=== PATIENT | female | born 1990 | race Caucasian/White ===

== ENCOUNTER 2017-06-05 20:09 | Emergency (ER) | payer MEDICAID, SELFPAY ==
[2017-06-05 20:43] VITALS: RESP 20
[2017-06-05] MEDS ORDERED: Sodium Chloride 0.9% 1,000 ML IV ONE (20:51)
--- NOTE | 2017-06-05 20:51 | C.PDOC ---
History Of Present Illness 26 year old female presents to the ED c/o generalized weakness, back pain, nausea and vomiting. Patient reports she is 3 weeks , she is G 3 P 2. Patient denies fever, chills, abdominal pain, diarrhea, vaginal bleeding, vaginal discharge. Time Seen by Provider: 06/05/17 20:50 Chief Complaint (Nursing): Female Genitourinary History Per: Patient History/Exam Limitations: no limitations Onset/Duration Of Symptoms: Days Quality Of Discomfort: "Pain" Associated Symptoms: Nausea, Vomiting Recent travel outside of the [place]: No Abnormal Vaginal Bleeding: No : 3 Para: 2 Past Medical History Reviewed: Historical Data, Nursing Documentation, Vital Signs Vital Signs: Last Vital Signs Temp 98.3 F 06/05/17 20:38 Pulse 103 H 06/05/17 20:38 Resp 20 06/05/17 20:38 BP 97/65 L 06/05/17 20:38 Pulse Ox 100 06/06/17 00:58 - Medical History PMH: No Chronic Diseases Surgical History: No Surg Hx Family History: States: Unknown Family Hx - Social History Hx Alcohol Use: No Hx Substance Use: No Review Of Systems Constitutional: Positive for: Malaise. Negative for: Fever, Chills Cardiovascular: Negative for: Chest Pain, Palpitations Respiratory: Negative for: Cough, Shortness of Breath Gastrointestinal: Positive for: Nausea, Vomiting. Negative for: Abdominal Pain Musculoskeletal: Positive for: Back Pain Skin: Negative for: Rash Neurological: Negative for: Weakness, Numbness Physical Exam - Physical Exam Appears: Non-toxic, No Acute Distress Skin: Warm, Dry Head: Normacephalic Nose: No Discharge, No Deformity Oral Mucosa: Moist Neck: Normal ROM, Supple Chest: Symmetrical Cardiovascular: Rhythm Regular, No Murmur Respiratory: No Decreased Breath Sounds, No Rales, No Rhonchi, No Wheezing Gastrointestinal/Abdominal: Soft, No Tenderness, No Guarding, No Rebound Extremity: No Tenderness, No Swelling Neurological/Psych: Oriented x3 Gait: Steady ED Course And Treatment - Laboratory Results Result Diagrams: 06/05/17 21:33 06/05/17 21:33 O2 Sat by Pulse Oximetry: 100 (On RA) Pulse Ox Interpretation: Normal - CT Scan/US US Other Rad Studies (CT/US): Read By Radiologist, Radiology Report Reviewed CT/US Interpretation: EXAM: US First Trimester, Transabdominal. CLINICAL HISTORY: 26 years old, female; Pain; complicated by abdominal or pelvic pain; Lower; First. trimester; Gestational age or lmp: ; ; Additional info: Abd pain, back pain, 3. weeks . TECHNIQUE: Real-time transabdominal obstetrical ultrasound of the maternal pelvis and a first trimester. with image documentation. COMPARISON: No relevant prior studies available. FINDINGS: Gestation: Single live intrauterine gestation. heart rate of 137 beats per minute. [place]-rump. length of 0.7 cm, correlating with gestational age of 6 weeks 4 days. Uterus/ cervix: No subchorionic hemorrhage. No cervical dilatation or effacement. Ovaries: RIGHT ovary: Normal. LEFT ovary: 2.0 x 2.1 x 1.9 cm anechoic lesion. No adnexal. masses. Free fluid: No significant free fluid. IMPRESSION: 1. Single live intrauterine gestation. 2. LEFT ovarian cyst. Progress Note: Plan: -Labs. -IV Fluids. -UA Reevaluation Time: 01:20 Reassessment Condition: Improved Disposition Counseled Patient/Family Regarding: Studies Performed, Diagnosis, Need For Followup, Rx Given - Disposition Referrals: [facility] [Outside] [facility] [Outside] Disposition: HOME/ ROUTINE Disposition Time: 20:51 Condition: FAIR Prescriptions: Metoclopramide [Reglan] 1 tab PO TID PRN #15 tab PRN Reason: Nausea/Vomiting Instructions: Abdominal Pain in (ED) Forms: [facility] ([place] Citizen) - Clinical Impression Clinical Impression: Abdominal pain during - Scribe Statement The provider has reviewed the documentation as recorded by the Scribe Сергей Delgado All medical record entries made by the Scribe were at my direction and personally dictated by me. I have reviewed the chart and agree that the record accurately reflects my personal performance of the history, physical exam, medical decision making, and the department course for this patient. I have also personally directed, reviewed, and agree with the discharge instructions and disposition.
[2017-06-05 21:39] LABS: BASO % 0.5 % (0.0-2.0); EOS % 0.3 % (0.0-4.0); HEMOGLOBIN 12.4 g/dL (11.0-16.0); LYMPH # 1.1 K/uL (1.0-4.3); LYMPH % 12.2 % (20.0-40.0); MEAN CELL VOLUME 71.5 fL (81.0-99.0); MEAN CORPUSCULAR HEMOGLOBIN 23.6 pg (27.0-31.0); MEAN CORPUSCULAR HGB CONC 32.9 g/dL (33.0-37.0); MEAN PLATELET VOLUME 9.8 fL (7.2-11.7); MONO # 0.7 K/uL (0.0-0.8); MONO % 7.4 % (0.0-10.0); NEUT # 7.1 K/uL (1.8-7.0); NEUT % 79.6 % (50.0-75.0); RBC 5.24 Mil/uL (3.80-5.20); RED CELL DISTRIBUTION WIDTH 15.4 % (11.5-14.5)
[2017-06-05 21:43] LABS: SQUAMOUS EPITHIAL 3 /hpf (0-5); URINE BILIRUBIN NEGATIVE (NEGATIVE); URINE BLOOD NEGATIVE (NEGATIVE); URINE CLARITY Hazy (Clear); URINE COLOR Yellow (YELLOW); URINE GLUCOSE (UA) NORMAL (Normal); URINE LEUKOCYTE ESTERASE NEG Leu/uL (Negative); URINE NITRATE NEGATIVE (NEGATIVE); URINE PROTEIN NEGATIVE (NEGATIVE); URINE UROBILINOGEN NORMAL mg/dL (0.2-1.0)
[2017-06-05 21:51] LABS: ALBUMIN 4.4 g/dL (3.5-5.0); ALT/SGPT 33 U/L (9-52); AST/SGOT 19 U/L (14-36); BLOOD UREA NITROGEN 11 mg/dL (7-17); CALCIUM 9.1 mg/dl (8.6-10.4); GFR AFRICAN-AMERICAN > 60; GFR NON-AFRICAN AMERICAN > 60
[2017-06-05 22:24] LABS: INR 1.4; PROTHROMBIN TIME 16.3 SECONDS (9.7-12.2)
--- NOTE | 2017-06-06 00:50 | US ---
EXAM: US First Trimester, Transabdominal CLINICAL HISTORY: 26 years old, female; Pain; complicated by abdominal or pelvic pain; Lower; First trimester; Gestational age or lmp: 04-14-2017; ; Additional info: Abd pain, back pain, 3 weeks TECHNIQUE: Real-time transabdominal obstetrical ultrasound of the maternal pelvis and a first trimester with image documentation. COMPARISON: No relevant prior studies available. FINDINGS: Gestation: Single live intrauterine gestation. heart rate of 137 beats per minute. [place]-rump length of 0.7 cm, correlating with gestational age of 6 weeks 4 days. Uterus/cervix: No subchorionic hemorrhage. No cervical dilatation or effacement. Ovaries: RIGHT ovary: Normal. LEFT ovary: 2.0 x 2.1 x 1.9 cm anechoic lesion. No adnexal masses. Free fluid: No significant free fluid. IMPRESSION: 1. Single live intrauterine gestation. 2. LEFT ovarian cyst.
[2017-06-06 01:48] VITALS: BP 102/68; PULSE 94; TEMP 97.9; O2SAT 99
== END 2017-06-06 01:49 | disposition home or self-care (01) ==
LOC: C.ER 20:09
DX: O26.891 Other specified pregnancy related conditions, first trimester (principal); R10.9 Unspecified abdominal pain; Z3A.01 Less than 8 weeks gestation of pregnancy
CPT/HCPCS: 76801; 80053; 81001; 84702; 85025; 85610; 85730; 86850; 86900; 96361; 96374; 99284; J7040

== ENCOUNTER → 2017-06-26 20:47 | Emergency (ER) | payer MEDICAID | END | disposition left against medical advice (07) | LOC: C.ER 20:47 | DX: Z02.89 Encounter for other administrative examinations (principal); R42 Dizziness and giddiness ==

== ENCOUNTER 2017-10-09 14:36 | Emergency (ER) | payer MEDICAID, SELFPAY ==
[2017-10-09 15:30] VITALS: BMI 26.6
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
--- NOTE | 2017-10-09 17:52 | US ---
PROCEDURE: Obstetrical ultrasound examination HISTORY: efw, COMPARISON: None available TECHNIQUE: Transabdominal FINDINGS: Single live intrauterine gestation in breech presentation. heart rate is 146 beats per minute. Normal anterior placenta. No evidence of placenta previa. Cervix closed and measures 3.4 cm in length. biometry demonstrates a age of 25 weeks 1 day. The ABI by ultrasound is 01/21/2018. The EFW is 746.28 g. Limited anatomy is assessed at this time. There is fluid distending the stomach and urinary bladder. A three-vessel cord is identified. The anterior abdominal wall is intact. A 4 chamber heart is demonstrated. SD ratio of the umbilical artery was assessed by duplex Doppler and measures 3.9. This is within normal limits. Please note that there is suspicion that the umbilical cord is wrapped around the neck. IMPRESSION: Single live intrauterine gestation of approximately 25 weeks 1 day. heart rate 146. Cervix closed. Anterior placenta. No previa. Umbilical cord may be wrapped around the neck. Follow-up ultrasound is advised. No gross anatomic abnormality.
[2017-10-09 22:56] VITALS: BP 99/59; PULSE 94; RESP 99; O2SAT 99
== END 2017-10-09 18:56 | disposition home or self-care (01) ==
LOC: C.EROB 14:36
DX: O36.8120 Decreased fetal movements, second trimester, not applicable or unspecified (principal); Z3A.25 25 weeks gestation of pregnancy

== ENCOUNTER 2018-06-14 11:51 | Outpatient (CLI) | payer OTHER | END 2018-06-14 11:52 | disposition home or self-care (01) | LOC: C.LAB 11:51 | DX: M32.10 Systemic lupus erythematosus, organ or system involvement unspecified (principal) ==

== ENCOUNTER 2018-06-14 11:56 | Outpatient (CLI) | payer OTHER | END 2018-06-14 11:57 | disposition home or self-care (01) | LOC: C.LAB 11:56 | DX: E03.9 Hypothyroidism, unspecified (principal); E06.3 Autoimmune thyroiditis; O99.281 Endocrine, nutritional and metabolic diseases complicating pregnancy, first trimester ==